=== PATIENT | female | born 1945 | race Caucasian/White ===

== ENCOUNTER 2021-10-27 08:46 | Outpatient (CLI) | payer MEDICARE, MEDICAID | END 2021-10-27 08:47 | disposition home or self-care (01) | LOC: CSHWCC 08:46 | PROVIDERS: ATTEND Nurse Practitioner Family | DX: L89.154 Pressure ulcer of sacral region, stage 4 (principal); L89.214 Pressure ulcer of right hip, stage 4; L89.624 Pressure ulcer of left heel, stage 4; L89.893 Pressure ulcer of other site, stage 3; L89.324 Pressure ulcer of left buttock, stage 4 | CPT/HCPCS: 11042; 11043; 11046; 97139; G0463; 99203 ==